=== PATIENT | male | born 1945 | race Caucasian/White ===

== ENCOUNTER → 2019-09-24 | Outpatient (CLI) | payer OTHER, BC ==
[~2019-09-24] VITALS: Ht 180.3 cm; Wt 74.8 kg
[~2019-09-24] MED LIST: COZAAR 25 MG TA25 MG PO; DILTIAZEM ER180 M2 PO; FISH OIL 1,0001 EAC9 PO; PROPAFENONE 15150 MG PO; VITAMIN D3250 MC2 PO
--- NOTE | 2019-09-25 08:29 | P ---
[facility] [place] [address] PROCEDURE REPORT Name: CHANELL PAREDES Room #: REG [facility]#: [id number] Admission: 09/24/19 Attend Phys: Yash Burks MD Discharge: Date of : 45 Report #: [id number] THIS REPORT FOR: cc: Shae Curtis MD,Shae Burks,Yash Parks MD ~ CC: Yash Curtis BRIEF HISTORY: The patient is a 74-year-old male with history of multiple colon adenomas, he has had in the range of 8 previous adenomas. PREOPERATIVE DIAGNOSIS: History of multiple colon polyps. POSTOPERATIVE DIAGNOSES: 1. Colon polyps x 3. 2. Internal hemorrhoids. MEDICATIONS: Deep sedation with propofol per Anesthesia. SPECIMENS: 1. Diminutive polyp from 40 cm. 2. Diminutive polyp from 70 cm. 3. Diminutive rectal polyp. ESTIMATED BLOOD LOSS: 3 mL. PROCEDURE: Colonoscopy to cecum and terminal ileum with biopsy. FINDINGS: Prior to propofol sedation, procedure of colonoscopy discussed with the patient as well as potential risks and its complications. He indicates he understands and desires to proceed. DESCRIPTION OF PROCEDURE: With the patient in left lateral decubitus position, digital examination was completed which revealed no abnormalities. Subsequently, the Olympus video colonoscope was introduced into the rectum, advanced under direct vision to the cecum. Done with minimal difficulty. Cecum was identified by the ileocecal valve and the appendiceal orifice. At that point, the scope was slowly withdrawn and careful circumferential views were obtained. Upon slow withdrawal of the scope, there were some limitations of the prep. There were some areas of residual material with particulate matter. Mostly of this, we were able to suction away and overall obtained reasonably good views of the colonic mucosa. No abnormalities were noted until 70 cm. At that point, a diminutive polyp was seen and removed with biopsy forceps. At 40 cm, another diminutive polyp was seen and removed with biopsy forceps. Scope was withdrawn in the rectum and a diminutive polyp was seen and had the [facility] [address] [place] [address] PROCEDURE REPORT Name: LENACHANELL Shamir Room #: REG [facility]#: [id number] Admission: 09/24/19 Attend Phys: Yash Burks MD Discharge: Date of : 45 Report #: [id number] appearance of an adenoma. It was removed with biopsy forceps. Upon retroflexion, small hemorrhoids were seen. Scope was withdrawn. The patient tolerated the procedure well. CONDITION OF THE PATIENT UPON DISCHARGE: Following procedure, the patient drowsy, aroused, conversant and will be discharged home when fully ambulatory. INSTRUCTIONS TO THE PATIENT AND FAMILY AT THE TIME OF DISCHARGE: We will follow up on the pathology. If 3 or more polyps are adenomas, he is to return in 3 years, otherwise return in 5 years. Last colonoscopy was about 5 years ago. Withdrawal time from the cecum was 13 minutes 37 seconds. <ELECTRONICALLY SIGNED> By: Yash Burks MD 09/25/19 0829 [id number] 9 Yash Burks MD /nt
--- NOTE | 2019-09-25 18:06 | PATH ---
[facility] [address] [address] PATHOLOGY RPT PROCEDURE Name: CHANELL PAREDES Shamir Room #: REG [facility].#: [id number] Admission: 09/24/19 Date of : 45 Discharge: Report #: [id number] Path Case #: [id number] [facility] Accession Number: [id number] . 01 Material submitted: . PART A: colon - POLYP AT 40CM PART B: colon - POLYP AT 70CM PART C: rectum - POLYP AT RECTUM . 01 Clinical history: . History of polyps Colon polyps . 02 Diagnosis: A. Polyp, at 40 cm, endoscopic biopsy: - Minute tubular adenoma. - Negative for high grade dysplasia. . B. Polyp, at 70 cm, endoscopic biopsy: - Hyperplastic polyp. - Negative for dysplasia. . C. Polyp, at rectum, endoscopic biopsy: - Hyperplastic polyp. - Negative for dysplasia. . (IUV:mml; 09/25/2019) QL 09/25/2019 1458 Local . 02 Electronically signed: . Riri Garcia MD, Pathologist NPI- [id number] . 01 Gross description: . A. The specimen is received in formalin, labeled "Brown, Chanell, polyp at 40 cm" and consists of a fragment of pink-arce tissue measuring 0.4 x 0.3 cm which is entirely submitted in A1. . B. The specimen is received in formalin, labeled "Brown, Chanell, polyp at 70 cm" and consists of a fragment of pink-arce tissue measuring 0.5 x 0.3 cm which is entirely submitted in B1. . C. The specimen is received in formalin, labeled "Brown, Chanell, polyp at rectum" and consists of a fragment of pink-arce tissue measuring 0.4 x 0.3 cm which is entirely submitted in C1. (SDY; 09/24/2019) SYU/SYU 09/24/[address] [address] PATHOLOGY RPT PROCEDURE Name: CHANELL PAREDES Shamir Room #: REG [facility]#: [id number] Admission: 09/24/19 Date of : 45 Discharge: Report #: [id number] Path Case #: [id number] . 02 Pathologist provided ICD-10: D12.6, K63.5, K62.1 . 02 CPT . 369852, [id number], [id number] Specimen Comment: A courtesy copy of this report has been sent to [phone], [phone] Specimen Comment: [id number] Specimen Comment: Report sent to / DR DAVIS Performed at: [address], [place], [place] [id number] MD Harry Glez MD Phone: [phone] Performed at: [address] [id number] MD Riri Garcia MD Phone: [phone]
== END | disposition home or self-care (01) ==
LOC: GI 10:08
PROVIDERS: ATTEND Specialist
DX: Z12.11 Encounter for screening for malignant neoplasm of colon (principal); Z86.010 Personal history of colon polyps; D12.5 Benign neoplasm of sigmoid colon; K62.1 Rectal polyp; I10 Essential (primary) hypertension; I48.91 Unspecified atrial fibrillation; Z98.890 Other specified postprocedural states; Z79.899 Other long term (current) drug therapy; Z85.820 Personal history of malignant melanoma of skin; Z96.652 Presence of left artificial knee joint; Z79.01 Long term (current) use of anticoagulants; Z87.891 Personal history of nicotine dependence; Z98.41 Cataract extraction status, right eye; Z98.42 Cataract extraction status, left eye; Z11.59 Encounter for screening for other viral diseases
CPT/HCPCS: 62110; 62900